=== PATIENT | female | born 1965 | race Asian ===

== ENCOUNTER 2023-07-18 16:43 | Emergency (ER) | payer OTHER ==
[2023-07-18 17:14] VITALS: BP 176/55; O2SAT 100
--- NOTE | 2023-07-18 17:48 | ED Physician Documentation ---
PD HPI LOWER EXT INJURY - Stated complaint Stated Complaint: LT ANKLE INJ - Chief complaint Chief Complaint: Trauma Ext - History obtained from History obtained from: Patient - History of Present Illness PD HPI LOW EXT INJURY LOCATION: Left, Ankle, Other (right anterior knee.) Type of injury: Fall Timing - onset: How many days ago (2) Timing - duration: Days (2) Timing - details: Abrupt onset, Still present (having improved ROM of the right knee with pain just anterior. Left ankle sitll with pain and is having bruising develop around base of ankle.) Worsened by: Moving, Palpating, Other (walking) Associated symptoms: Swelling, Discolored (bruising around base of ankle.). No: Weakness, Numbness Similar symptoms before: Has not had sx before Review of Systems Neurologic: denies: Focal weakness, Numbness PD PAST MEDICAL HISTORY - Past Medical History Past Medical History: Yes Cardiovascular: Hypertension Endocrine/Autoimmune: HyPOthyroidism - Past Surgical History /SECURITIES RESEARCH ANALYST: section - Present Medications Home Medications: Ambulatory Orders Medication Instructions Recorded Confirmed Carboxymethylcellulose Sodium 07/18/23 Fexofenadine HCl 180 mg PO DAILY 07/18/23 07/18/23 Fluticasone [Flonase] 1 sprays ELISA DAILY 07/18/23 07/18/23 Levothyroxine [Synthroid] 75 mcg PO QDAC 07/18/23 07/18/23 Losartan Potassium 100 mg PO DAILY 07/18/23 07/18/23 Simvastatin [Zocor] 20 mg PO DAILY 07/18/23 07/18/23 - Allergies Allergies/Adverse Reactions: Allergies Allergy/AdvReac Type Severity Reaction Status Date / Time amoxicillin Allergy Rash Verified 07/18/23 17:14 Penicillins Allergy Rash Verified 07/18/23 17:14 sulfamethoxazole Allergy Rash Verified 07/18/23 17:14 [From ] trimethoprim [From ] Allergy Rash Verified 07/18/23 17:14 - Social History Does the pt smoke?: No Smoking Status: Never smoker Does the pt drink ETOH?: No Does the pt have substance abuse?: No - Immunizations Immunizations are current?: Yes PD ED PE NORMAL - Vitals Vital signs reviewed: Yes - General General: Alert and oriented X 3, No acute distress, Well developed/nourished - Derm Derm: Normal color, Warm and dry - Extremities Extremities: Other (right knee tender anteriorly without effusion, nor any laxity with cruciate/collateral testing. LEft ankle with effusion, tender laterally, and bruising along base sides of heel/ankle. ) - Neuro Neuro: Alert and oriented X 3, No motor deficit, No sensory deficit, Normal speech Results - Vitals Vitals: Vital Signs - 24 hr 07/18/23 17:08 Temperature 36.4 C L Heart Rate 53 L Respiratory 15 Rate Blood Pressure 176/55 H O2 Saturation 100 Oxygen O2 Source Room air - Rads (name of study) right knee Relevant Findings:: Prelim report reviewed, EMP independent interpretation of test (no fractures) left ankle Relevant Findings:: Prelim report reviewed, EMP independent interpretation of test (no fractures. ) PD Medical Decision Making - ED course Complexity details: reviewed results, considered differential (the swelling and bruising of the ankle suggest partial tearing of soft tissue such as ligaments. ), d/w patient Departure - Departure Disposition: 01 Home, Self Care Clinical Impression: Moderate left ankle sprain Knee contusion Qualifiers: Encounter type: initial encounter Laterality: right Qualified Code(s): S80.01XA - Contusion of right knee, initial encounter Condition: Stable Record reviewed to determine appropriate education?: Yes Instructions: ED Sprain Ankle Follow-Up: Orthopedic Care [Provider Group] Comments: I do not see any fractures of your knee or ankle. There is obviously the swelling and bruising of the left ankle suggestive of some moderate degree of injury to the muscles or ligaments with some partial tear or else that would be bleeding. This can take a bit longer for healing and can be a 3 to 4-week process for full improvement or longer. We would suggest having you use an ankle brace when up and around to reduce the amount of pulling on the ligaments to allow better healing. Weightbearing is okay but will be sore of course. Darren wrap elevate and ice often to help reduce the swelling. Regular anti-inflammatory such as ibuprofen or naproxen to 3 tablet [id number] tablets 2-3 times daily for the next several days to week. Add Tylenol every 4-6 hours if needed for pain. I would anticipate gradual improvement over the next few weeks. Follow-up if not improved fairly well though in the next 1 or 2 weeks. You may develop even further bruising along the side of the foot over the next day or 2 and that would just be indicative of more blood gravitating from the injury down. Forms: PCP List Discharge Date/Time: 07/18/23 18:35
--- NOTE | 2023-07-18 18:12 | XRAY Report ---
PROCEDURE: Ankle 3 View LT INDICATIONS: Trauma TECHNIQUE: 3 views of the ankle were acquired. COMPARISON: None. FINDINGS: Bones: No fractures or dislocations. Ankle mortise is normally aligned. No suspicious bony lesions . Posterior calcaneal enthesophyte. Soft tissues: Moderate tibiotalar joint effusion. Achilles tendon appears normal. IMPRESSION: No acute bony abnormality. Moderate tibiotalar joint effusion. Reviewed by: David Wasserman on 07/18/2023 6:11 PM [facility] Approved by: David Wasserman on 07/18/2023 6:11 PM [facility] Station ID: [id number]
--- NOTE | 2023-07-18 18:12 | XRAY Report ---
PROCEDURE: Knee 4 View RT INDICATIONS: Trauma TECHNIQUE: 4 views of the knee(s) were acquired. COMPARISON: None. FINDINGS: Bones: No fractures or dislocations. No suspicious bony lesions. Soft tissues: No knee joint effusion. No suspicious soft tissue calcifications or masses. IMPRESSION: No acute bony abnormality. Reviewed by: David Wasserman on 07/18/2023 6:11 PM PST Approved by: David Wasserman on 07/18/2023 6:11 PM [facility] Station ID: [id number]
== END 2023-07-18 18:35 | disposition home or self-care (01) ==
LOC: ED 16:43
DX: S93.402A Sprain of unspecified ligament of left ankle, initial encounter (principal); S80.01XA Contusion of right knee, initial encounter; W18.30XA Fall on same level, unspecified, initial encounter
CPT/HCPCS: 99283; 99284

== ENCOUNTER 2024-01-26 13:41 | Outpatient (CLI) | payer OTHER | END 2024-01-26 13:42 | disposition home or self-care (01) | LOC: DI 13:41 | PROVIDERS: ATTEND Nurse Practitioner Family | DX: R01.1 Cardiac murmur, unspecified (principal) | CPT/HCPCS: 93307 ==